=== PATIENT | male | born 1960 | race Hispanic/Latino ===

== ENCOUNTER 2017-03-22 17:05 | Emergency (ER) | payer OTHER ==
[2017-03-22 18:48] LABS: Basophils % (Auto) 0.3 % (0.0-1.8); Eosinophils % (Auto) 1.2 % (0.0-4.3); Hematocrit 42.6 % (35.5-45.6); Hemoglobin 14.1 gm/dl (11.8-15.2); Mean Corpuscular HGB Conc 33 % (32-34); Mean Corpuscular Hemoglobin 31 pg (28-32); Mean Corpuscular Volume 94 fl (84-94); Platelet Count 161 K/mm3 (140-440); Red Blood Count 4.54 M/mm3 (3.65-5.03); Red Cell Distribution Width 13.8 % (13.2-15.2); White Blood Count 6.3 K/mm3 (4.5-11.0)
[2017-03-22 18:52] LABS: Alanine Aminotransferase 23 units/L (7-56); Albumin 4.8 g/dL (3.9-5); Albumin/Globulin Ratio 1.5 %; Alkaline Phosphatase 61 units/L (35-129); Anion Gap 19 mmol/L; Blood Urea Nitrogen 10 mg/dL (9-20); Calcium 9.9 mg/dL (8.4-10.2); Carbon Dioxide 25 mmol/L (22-30); Chloride 98.8 mmol/L (98-107); Glucose 120 mg/dL (75-100); Potassium 3.9 mmol/L (3.6-5.0); Sodium 139 mmol/L (137-145)
--- NOTE | 2017-03-23 01:48 | Emergency Department Report ---
ED Dizziness HPI - General Chief Complaint: Dizziness Stated Complaint: DON'T FEEL GOOD Time Seen by Provider: 03/23/17 01:12 Source: patient Mode of arrival: Ambulatory Limitations: No Limitations - History of Present Illness Initial Comments: 56-year-old the past medical history of hypertension presents to the hospital complains of lightheadedness episode that started at 11 AM. Patient was sitting in a hot car and when he stepped outside the car to take at and he had felt lightheaded, sweaty, and dizzy. Symptoms resolved within several minutes. He drove home and felt lightheaded upon getting out of the car and has some mild blurred vision. Patient went to lay down then felt like he should come to the hospital for evaluation and presented to the hospital after 5 PM. Patient had a colonoscopy 4 days ago. He is eating and drinking appropriate. Denies diarrhea, nausea, vomiting, melena, hematochezia, headache, chest pain, shortness of breath, or abdominal pain. - Related Data Allergies Allergy/AdvReac Type Severity Reaction Status Date / Time No Known Allergies Allergy Verified 03/22/17 17:06 ED Review of Systems ROS: Stated complaint: DON'T FEEL GOOD Other details as noted in HPI Comment: All other systems reviewed and negative Other: Constitutional: No fevers chills or weight loss Eyes: as per hpi ENT: No ear pain or throat pain Neck: Denies pain Respiratory: Denies cough wheezing shortness of breath Cardiovascular: Denies chest pain, palpitations, syncope GI: Denies abdominal pain, nausea, vomiting, diarrhea : Denies dysuria Musculoskeletal: Denies back pain, joint swelling Skin: Denies rash, lesions, erythema Neurologic: Denies headache, numbness, weakness Psychiatric: Denies suicidal ideation, hallucinations ED Past Medical Hx - Past Medical History Previous Medical History?: Yes Hx Hypertension: Yes Hx Diabetes: Yes - Social History Smoking Status: Never Smoker ED Physical Exam - General Limitations: No Limitations - Other Other exam information: General: No limitations, patient is alert in no acute distress Head exam: Atraumatic, normocephalic Eyes exam: Normal appearance, pupils equal reactive to light, extraocular movements intact ENT: Moist mucous membrane, normal oropharynx Neck exam: Normal inspection, full range of motion, no meningismus nontender Respiratory exam: Clear to auscultation bilateral, no wheezes, rales, crackles Cardiovascular: Normal rate and rhythm, normal heart sounds Abdomen: Soft, nondistended, and nontender, with normal bowel sounds, no rebound, or guarding Extremity: Full range of motion normal inspection no deformity Back: Normal Inspection, full range of motion, no tenderness Neurologic: Alert, oriented x3, cranial nerves intact, no motor or sensory deficit Psychiatric: normal affect, normal mood Skin: Warm, dry, intact ED Course Vital Signs 03/22/17 03/22/17 17:06 23:38 Temperature 98.7 F Pulse Rate 60 50 L Respiratory 16 16 Rate Blood Pressure 147/91 151/97 O2 Sat by Pulse 100 100 Oximetry - Reevaluation(s) Reevaluation #1: 03/23/17 01:40 Patient completely asymptomatic. Orthostatic vital signs were negative. ED Medical Decision Making - Lab Data Result diagrams: 03/22/17 18:13 03/22/17 18:13 Lab Results 03/22/17 03/22/17 Range/Units 18:13 18:13 WBC 6.3 (4.5-11.0) K/mm3 RBC 4.54 (3.65-5.03) M/mm3 Hgb 14.1 (11.8-15.2) gm/dl Hct 42.6 (35.5-45.6) % MCV 94 (84-94) fl MCH 31 (28-32) pg MCHC 33 (32-34) % RDW 13.8 (13.2-15.2) % Plt Count 161 (140-440) K/mm3 Lymph % (Auto) 25.0 (13.4-35.0) % [place] % (Auto) 7.2 (0.0-7.3) % Eos % (Auto) 1.2 (0.0-4.3) % Baso % (Auto) 0.3 (0.0-1.8) % Lymph # 1.6 (1.2-5.4) K/mm3 [place] # 0.5 (0.0-0.8) K/mm3 Eos # 0.1 (0.0-0.4) K/mm3 Baso # 0.0 (0.0-0.1) K/mm3 Seg Neutrophils % 66.3 (40.0-70.0) % Seg Neutrophils # 4.2 (1.8-7.7) K/mm3 Sodium 139 (137-145) mmol/L Potassium 3.9 (3.6-5.0) mmol/L Chloride 98.8 (98-107) mmol/L Carbon Dioxide 25 (22-30) mmol/L Anion Gap 19 mmol/L BUN 10 (9-20) mg/dL Creatinine 0.8 (0.8-1.5) mg/dL Estimated GFR > 60 ml/min BUN/Creatinine Ratio 12.50 % Glucose 120 H (75-100) mg/dL Calcium 9.9 (8.4-10.2) mg/dL Total Bilirubin 0.40 (0.1-1.2) mg/dL AST 22 (5-40) units/L ALT 23 (7-56) units/L Alkaline Phosphatase 61 (35-129) units/L Total Protein 8.0 (6.3-8.2) g/dL Albumin 4.8 (3.9-5) g/dL Albumin/Globulin Ratio 1.5 % - EKG Data -: EKG Interpreted by Me (sinus bradycardia first degree AV block rate 48, LVH) - EKG Data When compared to previous EKG there are: previous EKG unavailable - Medical Decision Making Patient asymptomatic for several hours in the ED since arrival. EKG shows heart rate of 48 monitor is in the high 50s to 60s. Patient is not symptomatic with standing orthostatic vital signs are negative. Patient is currently asymptomatic and never complained of chest pain, headache, abdominal pain. Labs unremarkable. Symptoms started after heat and humidity exposure. We'll discharge home with follow-up. - Differential Diagnosis dehydration, anemia, heat exposure, arrhythmia, [place] Critical Care Time: No Critical care attestation.: If time is entered above; I have spent that time in minutes in the direct care of this critically ill patient, excluding procedure time. ED Disposition Clinical Impression: Light-headed feeling Disposition: DC-01 TO HOME OR SELFCARE Is pt being admited?: No Does the pt Need Aspirin: No Condition: Stable Instructions: Lightheadedness (ED) Additional Instructions: Follow-up with your doctor within 2-3 days. Return if symptoms worsen. Continue your medications as prescribed Referrals: PRIMARY CARE, [Primary Care Provider] - 2-3 Days Time of Disposition: 01:52
[2017-03-23 02:01] VITALS: BP 155/91
== END 2017-03-23 02:01 | disposition home or self-care (01) ==
LOC: ED 17:05
DX: R42 Dizziness and giddiness (principal); I10 Essential (primary) hypertension; E11.9 Type 2 diabetes mellitus without complications
CPT/HCPCS: 36415; 80053; 85025; 93005; 93010; 99283